=== PATIENT | female | born 1960 | race Caucasian/White ===

== ENCOUNTER 2024-12-31 18:50 | Emergency (ER) | payer MEDICAID, SELFPAY ==
[2024-12-31 18:51] VITALS: BMI 26.5
[2024-12-31 19:00] VITALS: BP 120/87
--- NOTE | 2024-12-31 19:09 | ED.GENMED ---
History of Present Illness
General
Chief Complaint: Crisis Evaluation
Source: patient
Exam Limitations: none
Time Seen by Provider: 12/31/24 19:05
History of Present Illness
History of Present Illness:
See MDM
Past History
Past History
ED Past Medical History: Asthma, HTN, Hypercholesterolemia, Hypothyroidism and Psychiatric
ED Past Surgical History: None
Social History
Tobacco: Non-smoker
Alcohol: None
Phy Exam
Physical Exam
Physical Exam:
See MDM
Course
Orders/Labs/Results
Orders:
Orders
12/31/24 18:56
1:1 Observation - Suicide/ Violent Behavior As Directed
12/31/24 18:57
Crisis Consult Urgent
Reason for Consult: suicidal ideation
Vital Signs
Initial and Last Documented VS:
Initial Vital Signs
Temp Pulse Resp BP Pulse Ox
97.6 F 85 20 120/87 98
12/31/24 19:00 12/31/24 19:00 12/31/24 19:00 12/31/24 19:00 12/31/24 19:00
Last Documented Vital Signs
Temp Pulse Resp BP Pulse Ox
97.6 F 85 20 120/87 98
12/31/24 19:00 12/31/24 19:00 12/31/24 19:00 12/31/24 19:00 12/31/24 19:00
MDM/Problems Addressed
Differential Diagnosis Includes:
HPI and MDM Narrative:
64-year-old female presenting for crisis evaluation. Apparently, she had called her brother indicating that she was going to hurt herself by taking all of her pills. He called 911 and is apparently petitioning a 302. Patient does acknowledge that
she said this but also states that she did it for attention
Patient states she lives alone and her sister is her payee for Social Security. Patient believes that her sister has dementia. She wanted to get her brother's attention to discuss her issues with their sister. Patient states she has no thoughts
of hurting herself and merely just wanted his attention
Physical exam
General: Well appearing and non-toxic
HEENT: protecting airway
Neck: appears supple
CV: No evidence of cyanosis
Resp: No accessory muscle use
Abd: Non-distended
Extremities: No deformities
Neuro: alert
Psych: Normal affect
Skin: Intact
Problems Addressed including Acute and Chronic Conditions affecting care:
1. Suicidal ideation
Acuity: acute
Prognosis: stable
Details: Will have crisis evaluate
Updates
Case discussed with crisis. Patient was not interested is going to crisis and wants to go home. She is still denying suicidal thoughts. Per crisis, patient safe for discharge home. Patient states she has follow-up with [facility] in 1 week
Differential Diagnosis (but not limited to): Depression, suicidal thoughts
Testing considered: Blood work
Drug therapy (if applicable): OTC meds, please see d/c instruction regarding Rx drugs
Amount and/or Complexity of Data Reviewed
Clinical info obtained from: Patient
External data reviewed: N/A
Labs I independently reviewed (but not limited to): N/A
Radiology: N/A
Pulse Ox: not hypoxic
EKG independently reviewed: N/A
Nursing Student: N/A
Critical Care: N/A
Risk of Complication:
Social Determinants of health: Has brother and sister as support
Discussed with other providers: Crisis
Escalation of Care includes Admit/Obs: After being observed in the Emergency Department, pt stable for discharge.
Occasional wrong word or 'sound a like' substitutions may have occurred due to the inherent limitations of voice recognition software. Read the chart carefully and recognize, using context, where substitutions have occurred.
*Critical Care Note
Total Time (30-74mins, 75-104mins- exclusive of procedures): Not Applicable
ED Attending Note
-
Portions of this chart may have been created with voice recognition software.� Occasional wrong word or��sound alike� substitutions may have occurred due to the inherent limitations of voice recognition software.
Discharge Plan
Departure
Patient Disposition: Home (Routine Discharge)
Date of Disposition: 12/31/24
Time of Disposition: :
Patient with high blood pressure during this ER visit?: No
Discharge Problem:
Depression
Instructions: Depression, Adult (DC)
Referrals:
NONE,* [Family Provider] -
Activity Restrictions/Additional Instructions:
Please return for any worsening symptoms.
You may return at any time if you have further concerns.
Please follow up with your doctor at the first available appointment, preferably this week.
Please keep your [facility] follow-up appointment next week.
Thank you for choosing [facility].
Interventions
Interventions:
*Risk Screen - Suicide Last Done: 12/31/24 20:13
*General Assessment Last Done: 12/31/24 19:00
*Neglect/Abuse Screening Last Done: 12/31/24 20:13
*ED- Fall Risk Assessment Last Done: 12/31/24 20:13
*ED COVID-19 Vaccine History Last Done: 12/31/24 20:13
ED-Psychological Assessment Last Done: 12/31/24 20:13
Discharge Date and Time
Print Language: [place]
== END 2024-12-31 21:13 | disposition home or self-care (01) ==
LOC: EMR 18:50
PROVIDERS: EMERGENCY PHYSICIAN Student in an Organized Health Care Education/Training Program
DX: F32.A Depression, unspecified (principal)
CPT/HCPCS: 99283